=== PATIENT | female | born 1935 | race Caucasian/White ===

== ENCOUNTER 2017-07-30 21:41 | Inpatient (IN) | payer OTHER ==
[~2017-07-30] VITALS: Ht 158.8 cm; Wt 72.0 kg
[~2017-07-30 21:41] MED LIST: AMBIEN10 MG PO; BENAZEPRIL-HCT1 EAC5 PO; BENAZEPRIL-HCT1 EACH PO; CELECOXIB200 MG PO; CENTRAVITES 501 EACH PO; CIPRO500 MG PO; DARVOCET-N 1001 EAC1 PO; EMLA 30 GM30 GM TP; FERROUS SULFAT325 MG PO; GLIPIZIDE5 MG PO; HYDROCODON-ACE1 EAC7 PO; INDERAL20 MG PO; IRON325 M1 PO; LEVAQUIN500 MG PO; LO-DOSE ASPIRIN81 M2 PO; MOBIC15 MG PO; NOLVADEX10 MG PO; NOLVADEX20 MG PO; REFRESH EYE DR1 EACH BOTH EYES; ST. JOSEPH ASPI81 MG PO; TRAMADOL HCL50 MG PO; TYLENOL ARTHRI650 MG PO; TYLENOL WITH C1 EACH PO; XALATAN2.5 ML BOTH EYES; XANAX0.25 MG PO; XARELTO10 MG PO
[2017-07-31 07:38] VITALS: BP 193/88
[2017-07-31 08:15] VITALS: BP 193/88
[2017-07-31 12:27] VITALS: BP 155/74
[2017-07-31 15:40] VITALS: BP 136/65
[2017-07-31 20:10] VITALS: BP 134/63
[2017-08-01 00:16] VITALS: BP 156/78
[2017-08-01 04:16] VITALS: BP 104/55
[2017-08-01 05:16] LABS: MCV 96.9 FL (83-99)
[2017-08-01 05:19] LABS: HEMOGLOBIN 11.2 G/DL (11.9-15.5)
[2017-08-01 05:37] LABS: CHLORIDE 103 MEQ/L (99-109); GFR ESTIMATE (CALCULATED) 57 mL/min/; GLUCOSE 155 mg/dL (70-99); POTASSIUM 3.7 MEQ/L (3.7-5.4); SODIUM 140 MEQ/L (136-147); UREA NITROGEN (BUN) 22 mg/dL (9-23)
[2017-08-01 08:00] VITALS: BP 127/60
[2017-08-01 11:41] VITALS: BP 116/58
[2017-08-01 15:29] VITALS: BP 127/61
[2017-08-01 19:53] VITALS: BP 122/63
[2017-08-02 00:15] VITALS: BP 149/67
[2017-08-02 04:23] VITALS: BP 120/58
[2017-08-02 05:59] LABS: HEMATOCRIT 31.8 % (36.0-46.0); HEMOGLOBIN 10.4 G/DL (11.9-15.5); MCV 96.7 FL (83-99)
[2017-08-02 08:26] VITALS: BP 138/69
[2017-08-02] MEDS ORDERED: ONDANSETRON ODT4 MG PO (09:07)
[2017-08-02] MEDS ORDERED: ELIQUIS2.5 MG PO (09:07)
[2017-08-02] MEDS ORDERED: HYDROCODON-ACE1 EAC7 PO (09:07)
[2017-08-02 11:41] VITALS: BP 139/63
== END 2017-08-02 14:40 | DRG 470 ==
LOC: ENRESERV 21:41 → 2SOUTH 07-31 07:05 → 3WEST 07-31 11:52 → 2SOUTH 07-31 12:02 → 3WEST 08-02 14:40
PROVIDERS: Orthopaedic Surgery
PROC: 0SRC0J9 Replacement of Right Knee Joint with Synthetic Substitute, Cemented, Open Approach (ICD-10-PCS; principal; 2017-07-31)
DX: M17.11 Unilateral primary osteoarthritis, right knee (principal); E11.40 Type 2 diabetes mellitus with diabetic neuropathy, unspecified; M51.16 Intervertebral disc disorders with radiculopathy, lumbar region; I10 Essential (primary) hypertension; G47.00 Insomnia, unspecified; F41.9 Anxiety disorder, unspecified; M10.9 Gout, unspecified; Z88.4 Allergy status to anesthetic agent; Z88.2 Allergy status to sulfonamides; Z79.84 Long term (current) use of oral hypoglycemic drugs; Z85.3 Personal history of malignant neoplasm of breast; Z96.652 Presence of left artificial knee joint
CPT/HCPCS: 80048; 82948; 85014; 85018; C1713; J0131; J0690; J1815; J1885; J2250; J2405; J2795; J7050; J7120; Q0175